=== PATIENT | female | born 1950 | race Caucasian/White ===

== ENCOUNTER → 2017-10-03 | Outpatient (CLI) | payer MEDICARE ==
[~2017-10-03] MED LIST: ALPR0.254 PO; CEFU250T PO; LACT1TAB3 PO; LEVO50TA5 PO; LEVO75TA5 PO; LISI5TAB7 PO; PRED10TA PO; TRIA1CAP3 PO; miralax PO
== END | disposition home or self-care (01) ==
LOC: WOUND 14:00
PROVIDERS: ATTEND Nurse Practitioner Family
DX: L97.512 Non-pressure chronic ulcer of other part of right foot with fat layer exposed (principal); I10 Essential (primary) hypertension; I73.00 Raynaud's syndrome without gangrene; M81.0 Age-related osteoporosis without current pathological fracture; E03.9 Hypothyroidism, unspecified; G43.909 Migraine, unspecified, not intractable, without status migrainosus; E78.5 Hyperlipidemia, unspecified; K21.9 Gastro-esophageal reflux disease without esophagitis; E78.00 Pure hypercholesterolemia, unspecified; J43.9 Emphysema, unspecified; F41.8 Other specified anxiety disorders; Z87.891 Personal history of nicotine dependence; Z85.828 Personal history of other malignant neoplasm of skin
CPT/HCPCS: 11042; 87070; 87077; 87106; 87186; 87205; G0463; WOU0463

== ENCOUNTER → 2017-10-10 | Outpatient (CLI) | payer MEDICARE | END | disposition home or self-care (01) | LOC: WOUND 13:37 | PROVIDERS: ATTEND Nurse Practitioner Family | DX: L97.512 Non-pressure chronic ulcer of other part of right foot with fat layer exposed (principal); I10 Essential (primary) hypertension; I73.00 Raynaud's syndrome without gangrene; M81.0 Age-related osteoporosis without current pathological fracture; E03.9 Hypothyroidism, unspecified; G43.809 Other migraine, not intractable, without status migrainosus; E78.5 Hyperlipidemia, unspecified; K21.9 Gastro-esophageal reflux disease without esophagitis; K59.09 Other constipation; J43.9 Emphysema, unspecified; E55.9 Vitamin D deficiency, unspecified; Z87.891 Personal history of nicotine dependence | CPT/HCPCS: 97597 ==

== ENCOUNTER → 2017-10-17 | Outpatient (CLI) | payer MEDICARE | END | disposition home or self-care (01) | LOC: WOUND 13:00 | PROVIDERS: ATTEND Nurse Practitioner Family | DX: S91.114D Laceration without foreign body of right lesser toe(s) without damage to nail, subsequent encounter (principal); J43.8 Other emphysema; K21.9 Gastro-esophageal reflux disease without esophagitis; E78.4 Other hyperlipidemia; E03.8 Other specified hypothyroidism; E78.00 Pure hypercholesterolemia, unspecified; G43.909 Migraine, unspecified, not intractable, without status migrainosus; M81.0 Age-related osteoporosis without current pathological fracture; I10 Essential (primary) hypertension; I73.00 Raynaud's syndrome without gangrene; Z85.828 Personal history of other malignant neoplasm of skin; Z87.891 Personal history of nicotine dependence; X58.XXXD Exposure to other specified factors, subsequent encounter | CPT/HCPCS: G0463; WOU0463 ==

== ENCOUNTER → 2017-11-03 | Outpatient (CLI) | payer MEDICARE | END | disposition home or self-care (01) | LOC: WOUND 13:10 | PROVIDERS: ATTEND Family Medicine | DX: L97.512 Non-pressure chronic ulcer of other part of right foot with fat layer exposed (principal); I10 Essential (primary) hypertension; I73.00 Raynaud's syndrome without gangrene; M81.0 Age-related osteoporosis without current pathological fracture; G43.909 Migraine, unspecified, not intractable, without status migrainosus; K21.9 Gastro-esophageal reflux disease without esophagitis; E78.00 Pure hypercholesterolemia, unspecified; F41.8 Other specified anxiety disorders; J43.8 Other emphysema; E78.4 Other hyperlipidemia; E03.8 Other specified hypothyroidism; Z87.891 Personal history of nicotine dependence; Z85.828 Personal history of other malignant neoplasm of skin | CPT/HCPCS: 15275; Q4172 ==

== ENCOUNTER → 2017-11-08 | Outpatient (CLI) | payer MEDICARE | END | disposition home or self-care (01) | LOC: WOUND 14:59 | PROVIDERS: ATTEND Internal Medicine | DX: S91.13 Puncture wound without foreign body of toe without damage to nail (principal); I10 Essential (primary) hypertension; E03.9 Hypothyroidism, unspecified; I73.00 Raynaud's syndrome without gangrene; J43.8 Other emphysema; F41.9 Anxiety disorder, unspecified; M81.0 Age-related osteoporosis without current pathological fracture; G43.809 Other migraine, not intractable, without status migrainosus; E53.8 Deficiency of other specified B group vitamins; E78.4 Other hyperlipidemia; E78.00 Pure hypercholesterolemia, unspecified; K21.9 Gastro-esophageal reflux disease without esophagitis; K59.09 Other constipation; E55.9 Vitamin D deficiency, unspecified; Z87.891 Personal history of nicotine dependence; Z85.828 Personal history of other malignant neoplasm of skin; X58.XXXD Exposure to other specified factors, subsequent encounter | CPT/HCPCS: 97597 ==

== ENCOUNTER → 2017-11-16 | Outpatient (CLI) | payer MEDICARE | END | disposition home or self-care (01) | LOC: WOUND 15:13 | PROVIDERS: ATTEND Podiatrist Foot & Ankle Surgery | DX: S91.104D Unspecified open wound of right lesser toe(s) without damage to nail, subsequent encounter (principal); I10 Essential (primary) hypertension; F41.8 Other specified anxiety disorders; J43.8 Other emphysema; E78.4 Other hyperlipidemia; E03.8 Other specified hypothyroidism; K59.04 Chronic idiopathic constipation; M81.0 Age-related osteoporosis without current pathological fracture; K21.9 Gastro-esophageal reflux disease without esophagitis; G43.909 Migraine, unspecified, not intractable, without status migrainosus; E78.00 Pure hypercholesterolemia, unspecified; I73.00 Raynaud's syndrome without gangrene; Z87.891 Personal history of nicotine dependence; X58.XXXD Exposure to other specified factors, subsequent encounter | CPT/HCPCS: G0463; WOU0463 ==

== ENCOUNTER 2019-06-30 19:16 | Emergency (ER) | payer MEDICARE ==
[~2019-06-30] VITALS: Ht 160 cm; Wt 50.0 kg
--- NOTE | 2019-06-30 19:32 | NUR ---
PT RESTING ON GURNEY, MONITORS APPLIED, SIDERAILS UP X2, CALL LIGHT WITHIN REACH. ERP AT BEDSIDE FOR EVAL Addendum: 06/30/19 at 2 by IVAN PT A&OX4, SPEECH CLEAR, RESPIRATIONS EVEN AND UNLABORED, SPO2-97% R/A. PT STATED "MY FACE IS NOT BURNING ANYMORE ITS PRETTY MUCH GONE NOW"
[2019-06-30] MEDS ORDERED: LORazepam 1MG TABLET ONE (19:34)
--- NOTE | 2019-06-30 19:39 | NUR ---
PT MEDICATED PER MAR
[2019-06-30 19:40] VITALS: BP 153/75
[2019-06-30] MEDS ORDERED: ATOR-2 PO (19:47)
[2019-06-30] MEDS ORDERED: HYOS0.1282 PO (19:47)
[2019-06-30] MEDS ORDERED: METR250T PO (19:47)
--- NOTE | 2019-06-30 19:52 | NUR ---
PT UP TO RR WITH STEADY GAIT
[2019-06-30 19:59] LABS: BASOPHILS # (AUTO) 0.05 x10^3/uL (0-0.1); BASOPHILS % (AUTO) 1 % (0-1); EOSINOPHILS # (AUTO) 0.02 x10^3/uL (0-0.4); EOSINOPHILS % (AUTO) 0 % (1-7); LYMPHOCYTES # (AUTO) 2.04 x10^3/uL (1-3.4); LYMPHOCYTES % (AUTO) 22 % (22-44); MD NO; MEAN CORPUSCULAR HEMOGLOBIN 34.6 pg (27.0-34.8); MEAN CORPUSCULAR HGB CONC 33.4 g/dL (32.4-35.8); MEAN CORPUSCULAR VOLUME 103.6 fL (80-100); MEAN PLATELET VOLUME 7.5 fL (7.4-10.4); MONOCYTES # (AUTO) 0.64 x10^3/uL (0.2-0.8); MONOCYTES % (AUTO) 7 % (2-9); NEUTROPHILS # (AUTO) 6.46 x10^3/uL (1.8-6.8); NEUTROPHILS % (AUTO) 70 % (42-75); PLATELET COUNT 412 x10^3/uL (130-400); RED BLOOD COUNT 4.13 x10^6/uL (3.82-5.3); RED CELL DISTRIBUTION WIDTH 12.4 % (9.6-15.2)
[2019-06-30] MEDS ORDERED: LORazepam 1MG TABLET PO ONE (20:00)
--- NOTE | 2019-06-30 20:04 | NUR ---
PT SITTING UP ON GURNEY, MONITORS REAPPLIED, CALL LIGHT WITHIN REACH. AWAITING LAB RESULTS
[2019-06-30 20:07] LABS: ALANINE AMINOTRANSFERASE 48 U/L (12-78); ALBUMIN 4.1 g/dL (3.4-5.0); ANION GAP 9 mmol/L (5-15); CALCIUM 9.2 mg/dL (8.5-10.1); CHLORIDE 99 mmol/L (98-107); CREATININE 0.72 mg/dL (0.55-1.02)
[2019-06-30 20:09] LABS: ALKALINE PHOSPHATASE 72 U/L (45-117); BILIRUBIN,TOTAL 0.3 mg/dL (0.2-1.0); TOTAL PROTEIN 7.2 g/dL (6.4-8.2)
== END 2019-06-30 21:02 | disposition home or self-care (01) ==
LOC: ED 20:58
DX: R42 Dizziness and giddiness (principal); F41.1 Generalized anxiety disorder; R51 Headache; R19.7 Diarrhea, unspecified; R23.2 Flushing; E03.9 Hypothyroidism, unspecified
CPT/HCPCS: 36415; 80053; 85025; 93005; 99284